=== PATIENT | male | born 1970 | race Caucasian/White ===

== ENCOUNTER 2023-09-01 23:21 | Emergency (ER) | payer BC, SELFPAY ==
[2023-09-01] VITALS (7 sets, daily range): BP systolic 118–135; BP diastolic 59–76; PULSE 66–71; RESP 17–25; TEMP 36.7; O2SAT 93–97
--- NOTE | ~2023-09-01 | CT_ITS ---
EXAMINATION: CT BRAIN W/O DATE: 09/02/2023 00:20 INDICATION: Head injury. Intoxication. TECHNIQUE: Computed tomography (CT) of the head was performed without intravenous contrast. The dose- length product was 681.00 mGy-cm. Automated exposure control and iterative reconstruction technique w ere employed. COMPARISON: No prior studies for comparison. FINDINGS: Normal brain parenchymal volume for age. Normal abrams-white differentiation. No acute intrac ranial hemorrhage, infarction, mass or mass effect. No ventriculomegaly or midline shift. Midline sagittal images demonstrate a normal corpus callosum, c raniovertebral junction and sella turcica. Basilar cisterns are patent. Paranasal sinuses and mastoids are pneumatized. No depressed skull fractures. IMPRESSION: 1. No acute intracranial abnormality. Reviewed, dictated and finalized at location B.
--- NOTE | ~2023-09-01 | CT_ITS ---
EXAMINATION: CT facial & cervical spine wo DATE: 09/02/2023 00:22 INDICATION: Facial trauma TECHNIQUE: Computed tomography (CT) of the maxillofacial region and cervical spine was performed with out intravenous contrast. The dose-length product was 598.22 mGy-cm. Automated exposure control and i terative reconstruction technique were employed. COMPARISON: None FINDINGS: MAXILLOFACIAL CT: There is a left nasal fracture, age indeterminate. No other facial fracture. No significant soft tiss ue abnormality. Paranasal sinuses and mastoids are pneumatized. No depressed skull fractures. CERVICAL SPINE CT: Normal cervical alignment. There is disc narrowing and endplate hypertrophy at C5-6 and C6-7. Craniov ertebral junction is normal. Lateral masses normally aligned. Odontoid process within normal limits. There is mild multilevel uncinate and facet hypertrophy. Lung apices are unremarkable. There are coar se amorphous calcifications in the right neck, likely densely calcified lymph node. IMPRESSION: 1. Age-indeterminate left nasal fracture. Reviewed, dictated and finalized at location B.
[2023-09-01] MEDS: SODIUM CHLORIDE 0.9% IV 1,000 ML 999 ML IV CONT (23:40)
[2023-09-01] MEDS: ONDANSETRON INJ 4 MG/2 ML VIAL IV PUSH (23:41)
[2023-09-01 23:50] LABS: Basophils Percent Auto 0.4 % (0.2-1.2); Eosinophils Absolute Auto 0.1 K/mm3 (0-0.3); Eosinophils Percent Auto 1.3 % (0-4.4); Hemoglobin 12.6 g/dL (14.0-18.0); Immature Granulocyte Absolute 0.02 K/mm3 (0.00-0.031); Immature Granulocyte Percent A 0.2 % (0-0.5); Lymphocytes Absolute Auto 2.75 K/mm3 (0.9-3.2); Lymphocytes Percent Auto 32.3 % (18.3-44.2); Mean Corpuscular HGB Conc 34.1 g/dl (32-36); Mean Corpuscular Hemoglobin 32.8 pg (26-34); Mean Corpuscular Volume 96.4 fl (80-100); Mean Platelet Volume 9.8 fl (7.4-10.4); Monocytes Absolute Auto 0.8 K/mm3 (0.1-0.6); Monocytes Percent Auto 8.8 % (2.6-8.5); Neutrophils Absolute Auto 4.9 K/mm3 (1.3-6.7); Platelet Count Result 203 k/mm3 (150-375); Red Blood Count 3.84 M/mm3 (4.6-6.20); Red Cell Distribution Width 11.7 % (11.5-14.5); White Blood Count 8.5 K/mm3 (4.5-10.0)
[2023-09-02] VITALS (14 sets, daily range): BP systolic 123–156; BP diastolic 58–97; PULSE 68–127; RESP 13–19; O2SAT 95–99
[2023-09-02 00:03] LABS: Ethanol 265 mg/dL (<10)
--- NOTE | 2023-09-02 00:06 | ED.GENADULT ---
HPI - General Adult General Chief complaint: Fall Stated complaint: ETOH, fall Time Seen by Provider: 09/01/23 23:25 History of Present Illness HPI narrative: Patient is a 53-year-old gentleman who presents emergency department with chief complaint of fall. Patient was at the [facility] and was drinking alcohol the patient fell forward and struck his head against the bar and landed on the ground the patient was very slow to respond when EMS arrived and had a blood pressure that was somewhat low patient denies being on blood thinners reports that he drank numerous shots including Ruppelmints. the patient denies pain in his extremities denies abdominal pain Related Data Allergies Allergy/AdvReac Type Severity Reaction Status Date / Time No Known Allergies Allergy Unverified 12/22/18 12:41 Review of Systems Review of Systems: A 10 system review of systems was completed on the patient and is negative except for what is stated in the HPI. Nursing and ancillary documentation was reviewed. Exam Narrative: GENERAL: appears to be acutely intoxicated, well-nourished, and in no acute distress. actively vomiting HEAD: Normocephalic, atraumatic. EYES: PERRLA and EOMI. ENT: Nares clear, no rhinorrhea or epistaxis. Mucous membranes moist. NECK: Supple. CHEST: Clear to auscultation. No respiratory distress. HEART: Regular rate and rhythm. No murmur heard. Normal peripheral pulses. ABDOMEN: Soft, nontender, nondistended, normal active bowel sounds. EXTREMITIES: Normal range of motion. No edema. SKIN: Warm, dry, no rash. NEURO: No focal deficits. Alert and oriented x3. PSYCH: Normal mood and affect. Course Vital Signs Vital signs: Vital Signs Temperature 36.7 C 09/01/23 23:20 Pulse Rate 69 09/01/23 23:20 Respiratory Rate 17 09/01/23 23:20 Blood Pressure 135/76 09/01/23 23:20 Pulse Oximetry 93 09/01/23 23:20 Oxygen Delivery Room Air 09/01/23 23:20 Temperature 36.7 C 09/01/23 23:20 Pulse Rate 69 09/01/23 23:20 Respiratory Rate 17 09/01/23 23:20 Blood Pressure 135/76 09/01/23 23:20 Pulse Oximetry 93 09/01/23 23:20 Oxygen Delivery Room Air 09/01/23 23:20 Medical Decision Making [facility] Narrative Medical decision making narrative: differential diagnosis includes alcohol intoxication, head injury, cervical spine fracture, facial fracture laboratory studies were obtained on the patient showed a white count of and 0.5 electrolytes showed a potassium 2.7 the patient does have prior history of electrolyte abnormality due to gastric bypass urinalysis showed no evidence UTI blood alcohol level was [address] facial bones and CT C-spine showed no acute abnormality there is age-indeterminate nasal bone fracture Vital Signs Vital Signs: Vital Signs Temperature 36.7 C 09/01/23 23:20 Pulse Rate 69 09/01/23 23:20 Respiratory Rate 17 09/01/23 23:20 Blood Pressure 135/76 09/01/23 23:20 Pulse Oximetry 93 09/01/23 23:20 Oxygen Delivery Room Air 09/01/23 23:20 Temperature 36.7 C 09/01/23 23:20 Pulse Rate 69 09/01/23 23:20 Respiratory Rate 17 09/01/23 23:20 Blood Pressure 135/76 09/01/23 23:20 Pulse Oximetry 93 09/01/23 23:20 Oxygen Delivery Room Air 09/01/23 23:20 Lab Data 09/01/23 23:44 09/01/23 23:44 Labs: Lab Results 09/01/23 09/02/23 Range/Units 23:44 01:44 WBC 8.5 (4.5-10.0) K/mm3 RBC 3.84 L (4.6-6.20) M/mm3 Hgb 12.6 L (14.0-18.0) g/dL Hct 37.0 L (42.0-52.0) % MCV 96.4 (80-100) fl MCH 32.8 (26-34) pg MCHC 34.1 (32-36) g/dl RDW 11.7 (11.5-14.5) % Plt Count 203 (150-375) k/mm3 MPV 9.8 (7.4-10.4) fl Immature Gran % (Auto) 0.2 (0-0.5) % Neut % (Auto) 57.0 (45.5-73.1) % Lymph % (Auto) 32.3 (18.3-44.2) % Yancey % (Auto) 8.8 H (2.6-8.5) % Eos % (Auto) 1.3 (0-4.4) % Baso % (Auto) 0.4 (0.2-1.2) % Lymph # (Auto) 2.75
[2023-09-02 00:08] LABS: Alanine Aminotransferase 30 U/L (6-50); Albumin Level 3.9 g/dL (3.5-5.1); Alkaline Phosphatase 42 U/L (38-126); Anion Gap 12 mmol/L (4-12); Aspartate Amino Transferase 39 U/L (17-59); Bilirubin,Total 0.3 mg/dL (0.2-1.3); Blood Urea Nitrogen 17 mg/dL (9-20); Calcium 8.4 mg/dL (8.4-10.2); Carbon Dioxide 21 mmol/L (22-30); Chloride 108 mmol/L (98-107); Estimated CRCL calculation 96 ml/min; Estimated Glomerular Filt Rate > 60; Glucose 116 mg/dL (65-110); Potassium 2.7 mmol/L (3.4-5.0); Sodium 141 mmol/L (137-145)
--- NOTE | 2023-09-02 00:25 | PC.NURSE ---
pt removed his c-collar at this time. edp notified. pt asked to place c-collar back on. c-collar replaced on pt. pt verbalized i dont need this, i dont know why i am even here.
[2023-09-02 00:30] LABS: Magnesium 2.1 mg/dL (1.6-2.3)
[2023-09-02] MEDS: KCL 20 MEQ/SW 100 ML 100 ML 50 MEQ IVPB (00:41)
[2023-09-02 01:55] LABS: Appearance Urine Clear (Clear); Bacteria Urine 1+ /hpf; Bilirubin Urine Negative (Negative); Blood Urine Negative (Negative); Color Urine Yellow (Yellow); Glucose Urine UA Negative (Negative); Ketones Urine Negative (Negative); Leukocyte Esterase Ur Trace LEU/UL (Negative); Nitrate Urine Negative (Negative); Non Pathogenic Casts 0-2; Protein Urine Negative (Negative); RBC Urine 0-2 /hpf (0-2); Specific Grav Ur 1.009 (1.001-1.035); Squamous Epithelial Cell Urine None Seen /hpf (Few); Urobilinogen Urine 0.2 mg/dL (<2.0); WBC Urine 0-5 /hpf (0-3); pH Urine 5.5 (5.0-9.0)
[2023-09-02 02:10] LABS: Add Urine Microscopic? YES
[2023-09-02] MEDS: POTASSIUM CHLORIDE 20 MEQ PACKET (FOR LIQUID) 40 MEQ PO (02:25)
== END 2023-09-02 02:45 | disposition home or self-care (01) ==
PROVIDERS: Emergency Provider Emergency Medicine
DX: S09.90XA Unspecified injury of head, initial encounter (principal); E87.6 Hypokalemia; F10.129 Alcohol abuse with intoxication, unspecified; Y90.8 Blood alcohol level of 240 mg/100 ml or more; W19.XXXA Unspecified fall, initial encounter
CPT/HCPCS: 36415; 70450; 70486; 72125; 80053; 80307; 81001; 83735; 85025; 96361; 96365; 96375; 99284; A9270; J2405; J3480; J7030